=== PATIENT | male | born 1960 | race Caucasian/White ===

== ENCOUNTER → 2020-05-29 14:25 | Outpatient (CLI) | payer BC, OTHER, SELFPAY ==
--- NOTE | 2020-05-29 14:31 | RAD_ITS ---
STUDY: X-RAY CHEST REASON FOR EXAM: Male, 59 years old. Patient complains of fatigue and malaise TECHNIQUE: PA and lateral views of the chest. COMPARISON: None. FINDINGS: Cardiac silhouette unremarkable. Pulmonary vascularity unremarkable. Aorta unremarkable. No focal airspace opacities. No pleural effusions. Upper abdomen unremarkable. Osseous structures intact. No pneumothorax. RAD/Chest PA and Lateral IMPRESSION: No acute cardiopulmonary process identified. Electronically Signed: Gurwinder Coronel, at 15:08 EDT Tel , Service support ,
[2020-05-29 17:31] LABS: Absolute Lymphocyte Count 2.48 X10^3/uL (0.83-4.51); Absolute Neutrophil Count 4.5 X10^3/uL (2.0-7.7); Basophil# 0.04 X10^3/uL; Basophil% 0.5 % (0-1); Eosinophil# 0.08 X10^3/uL; Hemoglobin 13.5 g/dL (13.0-16.5); Lymphocyte # 2.48 X10^3/ul (4.0); Lymphocyte % 31.4 % (19-41); Mean Corp Hgb Conc 32.9 g/dL (32-36); Mean Corpuscular Hgb 31.6 pg (27.0-32.0); Mean Platelet Vol. 9.5 fl (6.2-12.0); Monocyte# 0.75 X10^3/uL; Monocyte% 9.5 % (0-10); NRBC Flagged by Analyzer 0 % (0-5); Neutrophil # 4.52 X10^3/uL (2.7-7.7); Neutrophil % 57.2 % (47-70); Platelet Count 354 K/mm3 (150-450); RBC Distribution Width CV 11.7 % (11.6-14.6); RBC Distribution Width SD 41.1 fl (35.1-43.9); Red Blood Count 4.27 M/mm3 (4.6-6.2); White Blood Count 7.9 K/mm3 (4.4-11.0)
[2020-05-29 17:38] LABS: Erythrocyte Sedimentation Rate 19 mm/hr (0-20)
[2020-05-29 17:44] LABS: Vitamin D,25 Hydroxy 33.7 ng/mL
[2020-05-29 17:54] LABS: Creatinine, Serum 0.89 mg/dL (0.70-1.30); EST Glomerular Filtration Rate 93 mL/min (>60); Est Glom Filt Rate - Afr Amer 112 mL/min (>60); Magnesium 2.1 mg/dL (1.6-2.6); Thyroid Stim Hormone (TSH) 1.06 uIU/mL (0.358-3.74)
[2020-06-03 00:37] LABS: Aldolase 6.8 U/L (3.3-10.3)
== END ==
PROVIDERS: PCP Family Medicine; Referring Provider Family Medicine; Visit Provider Family Medicine
DX: R53.83 Other fatigue (principal); R53.81 Other malaise
CPT/HCPCS: 36415; 71046; 82085; 82306; 82565; 83735; 84403; 84443; 85025; 85652

== ENCOUNTER → 2020-06-10 13:33 | Outpatient (CLI) | payer BC, OTHER, SELFPAY ==
--- NOTE | 2020-06-10 13:38 | STEWCON_ITS ---
Reason For Study: Dyspnea; Fatigue Stress Results Protocol: [facility] Protocol WITH DEFINITY Maximum Predicted HR: 161 bpm Target HR: 137 bpm % Maximum Predicted HR: 85 % DurationHeart Rate Stage (mm:ss) (bpm) BP Comment Baseline 45 124/70No Chest Pain: 3 ML Diluted Definity [facility]do Protocol Stage I 3:00 70 138/70No Chest Pain [facility]do Protocol Stage II 3:00 84 146/62No Chest Pain [facility]do Protocol Stage III 3:00 108 148/54No Chest Pain; Mild Dyspnea Zurdo Protocol Stage IV 2:15 137 / No Chest Pain; Mod Dyspea; Fatigue Recovery 50 108/62No Chest Pain; No Dyspnea Stress Duration: 11:15 mm:ss Maximum Stress HR: 137 bpm METS: 13 Baseline Echocardiogram Findings Stress Echo Wall motion Data Resting WM Intermediate WM Stress WM Resting Wall Motion Wall Motion Stress All segments Normal. All segments Hyperkinetic. Ejection Fraction 55 %. Ejection Fraction 70 %. Stress Results Heart rate response: Appropriate Blood pressure response: Normal resting blood pressure-appropriate response Arrhythmias: There was a rare PAC pretest and during recovery Functional capacity: Good Stopped secondary to: Dyspnea. EKG Data Baseline ECG: Sinus bradycardia. Peak exercise ECG: Somatic/motion artifact with no obvious ECG changes. Symptoms with Stress No complaint of chest discomfort during exercise or recovery. Interpretation Summary 1. Contrast injection performed 2. Negative (adequate) stress echocardiogram Ordering Physician: Milind Montalvo Referring Physician: Matthias Viera Performed By: Tiago Be RCS
== END ==
PROVIDERS: PCP Family Medicine; Referring Provider Family Medicine; Visit Provider Family Medicine
DX: R06.00 Dyspnea, unspecified (principal)
CPT/HCPCS: 93017; 93350; Q9957; A4216; C8928

== ENCOUNTER → 2023-10-10 | Outpatient (CLI) | payer BC, SELFPAY ==
--- NOTE | 2023-10-10 13:25 | CT_ITS ---
STUDY: CT PARANASAL SINUSES WITHOUT CONTRAST REASON FOR EXAM: Male, 63 years old. SINUSITIS RADIATION DOSAGE (If Supplied By Facility): CTDIvol = ( 33.06 ) mGy, DLP = ( 879.3 ) mGycm TECHNIQUE: The patient was scanned in a multi-detector CT scanner. High resolution transaxial imaging was performed and coronal images were reconstructed. Individualized dose optimization techniques were used for this CT. COMPARISON: None. FINDINGS: FRONTAL SINUSES: Normal development and aeration of the bilateral frontal sinuses without mucosal inflammatory disease. ETHMOIDAL SINUSES: Normal development and aeration of the bilateral ethmoidal air cells without mucosal inflammatory disease. MAXILLARY SINUSES: Mild circumferential mucosal thickening is present in the floor of the left maxillary sinus; maximum mucosal thickening measures 4.9 mm. Normal right maxillary sinus development and aeration of the bilateral maxillary antra without mucosal inflammatory disease. SPHENOIDAL SINUSES: Normal aeration of the bilateral sphenoid sinuses and there is no mucosal inflammatory disease. OMU: Normal aeration of the bilateral maxillary infundibulum. Normal uncinate process, ethmoid bulla, and hiatus semilunaris. MIDDLE TURBINATES: Mild bilateral caroline bullosa of the middle turbinates, left greater than right INFERIOR TURBINATES: Normal bilateral inferior turbinates. NASAL SEPTUM: Mild to moderate rightward deviation of the bony nasal septum with a small right-sided spur projecting into the airway and abutting the right inferior nasal turbinate. There is no nasal septal mass lesions, deviation or spur. Normal anterior cranial fossa, allison keith and cribriform plate. Normal bilateral orbital contents. Normal nasopharynx without adenoidal pad hypertrophy, or a posterior nasopharyngeal retention cyst. There is no demonstrated enhancing soft tissue or osseous abnormality. MASTOID SINUSES: Normal bilateral mastoid air cells which are clear. Normal bilateral inner ear ossicles and tympanic membranes. The external auditory canals are unremarkable. CT/Sinus/Facial Bone IMPRESSION: 1. Mild circumferential mucosal thickening is present in the floor of the left maxillary sinus; maximum mucosal thickening measures 4.9 mm. 2. Mild to moderate rightward deviation of the bony nasal septum with a small right-sided spur projecting into the airway and abutting the right inferior nasal turbinate. Electronically Signed: Guillermo Madrigal MD at 16:11 EST ,
== END | disposition home or self-care (01) ==
LOC: CT 13:23
PROVIDERS: PCP Family Medicine; Referring Provider Otolaryngology Otolaryngology/Facial Plastic Surgery; Visit Provider Otolaryngology Otolaryngology/Facial Plastic Surgery
DX: J32.8 Other chronic sinusitis (principal)
CPT/HCPCS: 70486

== ENCOUNTER → 2024-07-30 | Outpatient (CLI) | payer BC, SELFPAY ==
--- NOTE | 2024-07-30 12:55 | RAD_ITS ---
STUDY: X-RAY - LEFT KNEE REASON FOR EXAM: Male, 63 years old. Pain. TECHNIQUE: 4 views of the left knee. COMPARISON: None. FINDINGS: Normal visualized distal femur. Normal visualized proximal tibia and fibula. Normal proximal tibiofibular articulation. There is no demonstrated fracture. Normal medial femorotibial compartment. Normal lateral femorotibial compartment. Normal patellofemoral articulation. There is a moderate joint effusion. The soft tissue structures are unremarkable. RAD/Knee 4 or More Views IMPRESSION: Moderate joint effusion. No demonstrated fracture. Electronically Signed: Jeevan Maguire MD at 16:10 EDT ,
== END | disposition home or self-care (01) ==
PROVIDERS: PCP Family Medicine; Referring Provider Family Medicine; Visit Provider Family Medicine
DX: M25.562 Pain in left knee (principal)
CPT/HCPCS: 73564

== ENCOUNTER → 2024-11-23 | Outpatient (CLI) | payer BC, SELFPAY ==
[2024-11-23 10:07] LABS: Hemoglobin A1c 5.6 % (3.8-5.6)
[2024-11-23 10:10] LABS: ALB/GLOB Ratio 0.9 RATIO (0.9-2.4); AST(SGOT) 27 U/L (15-37); Alanine Aminotransfer ALT/SGPT 31 U/L (16-61); Albumin, Serum 3.4 g/dL (3.2-5.0); Alkaline Phosphatase 118 U/L (45-117); Anion Gap 4 (5-15); BUN 17 mg/dL (7-18); BUN/Creat Ratio 19.2 RATIO (10-20); Chloride 105 mmol/L (98-107); Cholesterol 227 mg/dL (200); Creatinine, Serum 0.89 mg/dL (0.70-1.30); EST Glomerular Filtration Rate 92 mL/min (>60); Est Glom Filt Rate - Afr Amer 111 mL/min (>60); Globulin 3.9 g/dL (2.2-4.2); Glucose 105 mg/dL (74-106); High Density Lipoprotein 58 mg/dL; Potassium 4.5 mmol/L (3.5-5.1); Protein, Total 7.3 g/dL (6.4-8.2); Sodium Level 138 mmol/L (136-145); Triglycerides 95 mg/dL; Very Low Density Lipoprotein 19 mg/dL (5-40)
== END | disposition home or self-care (01) ==
LOC: LAB 09:01
PROVIDERS: PCP Family Medicine
DX: Z00.01 Encounter for general adult medical examination with abnormal findings (principal); E78.00 Pure hypercholesterolemia, unspecified
CPT/HCPCS: 36415; 80053; 80061; 83036

== ENCOUNTER → 2025-03-04 | Outpatient (CLI) | payer BC, SELFPAY ==
--- NOTE | 2025-03-04 09:49 | STE_ITS ---
Reason For Study Reason For Study: Bradycardia Stress Results Protocol: [facility]do Protocol Maximum Predicted HR: 156 bpm Target HR: 133 bpm % Maximum Predicted HR: 91 % DurationHeart Rate Stage (mm:ss) (bpm) BP Comment Baseline 44 132/82Patient denies chest pain Stage 1 3:00 72 140/80Patient denies chest pain Stage 2 3:00 82 152/80Patient denies chest pain Stage 3 3:00 100 162/82Patient denies chest pain Stage 4 3:00 137 170/84Shortness of breath. Denies chest pain Stage 5 0:30 142 / Increased shortness of breath. Denies chest pain. Recovery 53 144/84Patient denies chest pain Stress Duration: 12:30 mm:ss Maximum Stress HR: 142 bpm Baseline Echocardiogram Findings The left ventricular ejection fraction is 60 %. Stress Echo Wall motion Data Resting WM Intermediate WM Stress WM Resting Wall Motion Wall Motion Stress No regional wall motion abnormalities All segments Hyperkinetic. noted. EKG Data Baseline ECG sinus bradycardia. Exercise ECG with sinus tachycardia. No chronological incompetence. No ischemic ECG changes. ECHO/Stress Test Echo w/o Contrast Interpretation Summary The baseline left ventricular ejection fraction is 60 %. Exercise ECG with sinus tachycardia. No chronological incompetence. No ischemic ECG changes. Post exercise, all LV wall segments hyperkinetic. No echo evidence of ischemia. Negative exercise stress echocardiogram. Ordering Physician: Ese Dennis Referring Physician: Ese Dennis Performed By: Vita Griggs RDCS
== END | disposition home or self-care (01) ==
LOC: CVS 09:49
PROVIDERS: PCP Family Medicine; Referring Provider Internal Medicine Cardiovascular Disease; Visit Provider Internal Medicine Cardiovascular Disease
DX: R06.00 Dyspnea, unspecified (principal)
CPT/HCPCS: 93017; 93350

== ENCOUNTER → 2025-03-08 | Outpatient (CLI) | payer BC, SELFPAY ==
--- NOTE | 2025-03-08 08:55 | ECHOD_ITS ---
Reason For Study Reason For Study: Arrhythmia Procedure This was a 2D Doppler, Color Flow transthoracic echocardiogram. Exam performed in department. Left Ventricle Normal LV size. Mild concentric left ventricular hypertrophy. The left ventricular ejection fraction is 65 %. Stage 1 diastolic dysfunction. Right Ventricle Normal right ventricle. Atria Normal left atrium. Normal right atrium. Prominent eustachian valve. Mitral Valve Mild (1+) mitral valve insufficiency. Tricuspid Valve Trivial tricuspid valve insufficiency. Normal pulmonary artery pressure. Aortic Valve Trisinus/trileaflet aortic valve. Mildly thickened right coronary cusp of the aortic valve. Trivial aortic valve regurgitation. Pulmonic Valve The pulmonic valve is not well visualized. Great Vessels Mildly dilated aortic root. Pericardium/Pleural No pericardial effusion. MMode/2D Measurements & Calculations LVIDd: 5.4 cm IVSd: 1.2 cm Ao root diam: 4.0 cm LVIDs: 3.1 cm LVPWd: 1.2 cm RVDd: 4.3 cm FS: 41.9 % asc Aorta Diam: 4.1 cm LAV(MOD-bp): 66.0 ml LVAd ap4: 37.8 cm2 LAV(MOD-bp) Indexed: 30.4 ml/m2 LVLd ap4: 8.7 cm LAV(MOD-sp2): 66.1 ml EDV(MOD-sp4): 135.3 ml LAV(MOD-sp4): 57.1 ml EDV(sp4-el): 139.9 ml LVAs ap4: 19.8 cm2 LVLs ap4: 7.2 cm ESV(MOD-sp4): 46.6 ml ESV(sp4-el): 46.2 ml EF(MOD-sp4): 65.5 % EF(sp4-el): 67.0 % SV(MOD-sp4): 88.7 ml SV(sp4-el): 93.7 ml Ao sinus diam: 4.1 cm SI(MOD-sp4): 40.8 ml/m2 Ao ST Junction: 3.1 cm LA A4 area: 18.9 cm2 LA dimension(2D): 4.0 cm TAPSE: 2.0 cm RA A4 area: 20.7 cm2 Time Measurements MV dec time: 0.22 sec Doppler Measurements & Calculations MV E max surinder: 62.4 cm/sec Lat Peak E' Surinder: 8.7 cm/sec Med Peak E' Surinder: 8.6 cm/sec MV A max surinder: 73.9 cm/sec E/E' lat: 7.2 E/E' med: 7.2 MV E/A: 0.84 MV V2 max: 83.0 cm/sec MV P1/2t max surinder: 69.2 cm/sec Ao V2 max: 143.4 cm/sec MV max P.8 mmHg MV P1/2t: 82.9 msec Ao max P.3 mmHg MV V2 mean: 35.4 cm/sec MV dec slope: 244.7 cm/sec2 Ao V2 mean: 92.9 cm/sec MV mean P.65 mmHg Ao mean P.0 mmHg MV V2 VTI: 43.2 cm MVA(P1/2t): 2.7 cm2 Ao V2 VTI: 34.8 cm AV (velocity ratio): 0.89 LV V1 max: 131.3 cm/sec PA V2 max: 98.7 cm/sec TR max surinder: 206.4 cm/sec LV V1 max P.9 mmHg TR max P.0 mmHg LV V1 mean P.4 mmHg LV V1 mean: 86.0 cm/sec LV V1 VTI: 30.9 cm ECHO/Echo Complete Interpretation Summary Mild concentric left ventricular hypertrophy. The left ventricular ejection fraction is 65 %. Stage 1 diastolic dysfunction. Mild (1+) mitral valve insufficiency. Mildly thickened right coronary cusp of the aortic valve. Trivial aortic valve regurgitation. Mildly dilated aortic root. Ordering Physician: Ese Dennis Referring Physician: Ese Dennis Performed By: Tiago Be RCS
== END | disposition home or self-care (01) ==
LOC: CVS 08:53
PROVIDERS: PCP Family Medicine; Referring Provider Internal Medicine Cardiovascular Disease; Visit Provider Internal Medicine Cardiovascular Disease
DX: R00.1 Bradycardia, unspecified (principal); R06.09 Other forms of dyspnea
CPT/HCPCS: 93306